=== PATIENT | female | born 1980 | race African-American/Black ===

== ENCOUNTER 2016-11-24 15:25 | Emergency (ER) | payer MEDICAID ==
[~2016-11-24] VITALS: Ht 175.3 cm; Wt 81.6 kg
[2016-11-24 15:34] VITALS: BP 121/77
[2016-11-24 16:36] LABS: Urine Bilirubin Negative (Negative); Urine Blood 2+ /uL (Negative); Urine Color Yellow (Yellow); Urine Glucose Normal (Normal); Urine Ketone Negative (Negative); Urine Nitrite Negative (Negative); Urine RBC 1 /hpf (0 - 4); Urine Squamous Epithelial Cell FEW /hpf (<5); Urine Urobilinogen Normal (Negative); Urine pH 6.5 (5.0-8.0)
[2016-11-24] MEDS ORDERED: AZITHROMYCIN 250 MG TAB PO ONE ×2 (21:57→22:00)
[2016-11-24] MEDS ORDERED: cefTRIAXone SODIUM 250 MG VL ONE (21:57)
[2016-11-24] MEDS ORDERED: cefTRIAXone SODIUM 250 MG VL IM ONE (22:00)
[2016-11-24 22:31] LABS: Basophils # (auto) 0.2 uL; Basophils % (auto) 2.7 % (0.0-2.0); CONDITION Y; Eosinophils # (auto) 0.1 uL; Eosinophils % (auto) 1.4 % (0.0-7.0); Lymphocytes # (auto) 1.4 uL; Lymphocytes % (auto) 23.3 % (10.0-50.0); Mean Corpuscular Hemoglobin 28.4 pg (28.0-32.0); Mean Corpuscular Hgb Conc. 32.4 g/dL (32.0-36.0); Mean Corpuscular Volume 87.6 fL (80.0-100.0); Monocytes # (auto) 0.4 uL; Monocytes % (auto) 7.4 % (0.0-12.0); Neutrophils # (auto) 3.9 uL; Neutrophils % (auto) 65.2 % (37.0-80.0); Platelet Count (auto) 295 10^3/uL (140-450)
== END 2016-11-24 23:11 | disposition home or self-care (01) ==
LOC: ER 15:31
DX: O20.0 Threatened abortion (principal); Z3A.01 Less than 8 weeks gestation of pregnancy
CPT/HCPCS: 36415; 76801; 81001; 84702; 85025; 96372; 99285; J0696